=== PATIENT | female | born 1980 | race Caucasian/White ===

== ENCOUNTER 2019-09-13 01:01 | Inpatient (IN) | payer MEDICAID ==
[2019-09-13] VITALS (9 sets, daily range): BP systolic 90–122; BP diastolic 58–72; Ht 157.5 cm; Wt 47.6 kg
[~2019-09-13] VITALS: Ht 157.5 cm; Wt 47.6 kg
[~2019-09-13 01:01] MED LIST: DESERYL100 MG PO; FERREX 150 PLUS1 CAP PO; HUMALOG 30100 UNITS/ SC; HUMALOG MIX 50/53 ML SQ; HYDROCODONE-APA1 TAB PO; INHALER; INVOKANA300 MG PO; LANTUS SOL100 UNIT/1; LANTUS SOL100 UNIT/1 SC; LEVAQUIN750 MG PO; NAPROSYN500 MG PO; NEURONTIN 300300 MG PO; PAMELOR10 MG PO; PCN IV; SYMBICORT 80-10.2 GM INH; SYNTHROID150 MCG PO; TYLENOL W/CODEI1 TAB PO; VENTOLIN HFA18 GM; VENTOLIN HFA18 GM INH
[2019-09-13] MEDS ORDERED: NOVOLOG100 UNIT/1 SC (01:07)
[2019-09-13] MEDS ORDERED: LANTUS INSULIN SQ (01:07)
[2019-09-13 01:41] LABS: BILIRUBIN NEGATIVE (NEGATIVE); GLUCOSE 1000 mg/dL (NEGATIVE); KETONE NEGATIVE (NEGATIVE); NITRITE NEGATIVE (NEGATIVE); UROBILINOGEN NORMAL (NORMAL)
[2019-09-13 01:42] LABS: HCG URINE NEGATIVE (NEGATIVE)
[2019-09-13 01:48] LABS: UDS - AMPHET NEGATIVE QUAL (NEGATIVE); UDS - BARB NEGATIVE QUAL (NEGATIVE); UDS - BENZO NEGATIVE QUAL (NEGATIVE); UDS - COCAINE NEGATIVE QUAL (NEGATIVE); UDS - OPIATE NEGATIVE QUAL (NEGATIVE); UDS - PCP NEGATIVE QUAL (NEGATIVE); UDS - THC NEGATIVE QUAL (NEGATIVE)
[2019-09-13 01:57] LABS: HEMATOCRIT 39.4 % (36.0-48.0); HEMOGLOBIN 13.8 g/dL (12-16); LYMPHOCYTES 24.5 % (15-50); MCH 30.3 pg (26.0-34.0); MCV 86.6 fL (80.0-100.0); MEAN PLATELET VOLUME 9.4 fL (7.4-10.4); NEUTROPHILS 68.8 % (40-80); RBC 4.55 10x6/uL (4.00-5.40); WBC 7.7 10x3/uL (4.8-10.8)
[2019-09-13 02:02] LABS: PLATELET COUNT 396 10x3/uL (130-400)
[2019-09-13 02:18] LABS: ALBUMIN 3.4 g/dL (3.4-5.0); ANION GAP 13.9 mmol/L (8-16); BILIRUBIN - TOTAL 0.5 mg/dL (0.2-1.3); CALCIUM 9.4 mg/dL (8.5-10.1); CARBON DIOXIDE 25.6 mmol/L (21.0-32.0); MAGNESIUM - SERUM 1.9 mg/dL (1.8-2.4); PHOSPHOROUS 3.6 mg/dL (2.5-4.9); POTASSIUM - SERUM 4.5 mmol/L (3.5-5.1); PROTEIN - SERUM 7.3 g/dL (6.4-8.2); THYROID STIMULATING HORMONE 11.93 uIU/mL (0.36-3.74)
--- NOTE | 2019-09-13 07:28 | NUR ---
AWAKE AND ALERT. ORIENTED X3. NO C/O AT THIS TIME. LUNGS ARE CLEAR BILATERALLY, ENCOURAGED TO USE IS INSTRUCTED. SKIN IS INTACT WITHOUT REDNESS. IV TO RIGHT FOREARM IS PATENT WITHOUT REDNESS AT INSERTION SITE. PUREWICK IN PLACE. NO URINE OUT AT THIS TIME. DENIES NEEDS.
--- NOTE | 2019-09-13 09:29 | NUR ---
RESTING QUIETLY IN BED. CONSENTS COMPLETED. ALL QUESTIONS ANSWERED.
--- NOTE | 2019-09-13 10:53 | MORECARE ---
CASE MANAGEMENT DISCHARGE SUMMARY PATIENT: JESSICA RUIZ UNIT: [id number] ADM DATE: 09/13/19 AGE: 39 : 82 SEX: F ROOM/BED: D.1209 AUTHOR: MABLE ANTOINE PHYSICIAN: REFERRING PHYSICIAN: SHARMIN WINSTON MD DATE OF SERVICE: 09/13/19 Discharge Plan Patient Name: JESSICA RUIZ [facility] [facility] 1980 Planned Disposition: Outpatient PT\OT Anticipated Discharge Date: Discharge Date: Expected LOS: Initial Reviewer: [id number] Initial Review Date: 09/13/2019 Generated: 09/13/19 11:53 am Patient Name: JESSICA RUIZ Page 40700 at 1053 All edits/amendments must be made on the electronic document DICTATION DATE: 09/13/19 1053 SUPERVISOR ELECTRONICS PROCESSING: SAMIR 09/13/19 1053 RPT#: [id number] DC DATE: STATUS: ADM IN [facility] [address] [place] [address] END OF REPORT
--- NOTE | 2019-09-13 11:00 | MORECARE ---
CASE MANAGEMENT DISCHARGE SUMMARY PATIENT: JESSICA RUIZ UNIT: [id number] ADM DATE: 09/13/19 AGE: 39 : 82 SEX: F ROOM/BED: D.1209 AUTHOR: MABLE ANTOINE PHYSICIAN: REFERRING PHYSICIAN: SHARMIN WINSTON MD DATE OF SERVICE: 09/13/19 Discharge Plan Patient Name: JESSICA RUIZ [facility] [facility] 1980 Planned Disposition: Outpatient PT\OT Anticipated Discharge Date: Discharge Date: Expected LOS: Initial Reviewer: [email or web address] Initial Review Date: 09/13/2019 Generated: 09/13/19 12:00 pm DCPIA - Discharge Planning Initial Assessment Updated by [email or web address]: Edel Rosas on 09/13/19 10:53 am * Is the patient Alert and Oriented? Yes * How many steps to enter\exit or inside your home? * PCP None. * Pharmacy [facility] [place] * Preadmission Environment Home with Family * ADLs Independent * Equipment Glucometer * List name and contact numbers for known caregivers / representatives who currently or will assist patient after discharge: Jeanette Montanez (friend) [phone] * Verbal permission to speak to the caregivers and representatives has been obtained from the patient. Yes * Please name any agencies selected above. [facility] [place] * Additional services required to return to the preadmission environment? Yes * Can the patient safely return to the preadmission environment? Yes * Has this patient been hospitalized within the prior 30 days at any hospital? No Last DP export: 09/13/19 9:53 a Patient Name: JESSICA RUIZ Page 02718 at 1100 All edits/amendments must be made on the electronic document DICTATION DATE: 09/13/19 1100 REIMBURSEMENT REPRESENTATIVE: SAMIR 09/13/19 1100 RPT#: [id number] DC DATE: STATUS: ADM IN [facility] [address] [place] [address] END OF REPORT
--- NOTE | 2019-09-13 11:07 | MORECARE ---
CASE MANAGEMENT DISCHARGE SUMMARY PATIENT: VIOLA LYLES UNIT: [id number] ADM DATE: 09/13/19 AGE: 39 : 82 SEX: F ROOM/BED: D.1209 AUTHOR: ARASH,DOC PHYSICIAN: REFERRING PHYSICIAN: SHARMIN WINSTON MD DATE OF SERVICE: 09/13/19 Discharge Plan Patient Name: VIOLA LYLES Facility: [facility]:[place] : 1980 Planned Disposition: Outpatient PT\\OT Anticipated Discharge Date: Discharge Date: Expected LOS: Initial Reviewer: [email or web address] Initial Review Date: 09/13/2019 Generated: 09/13/19 12:07 pm Comments DCP- Discharge Planning Updated by [email or web address]: Edel Rosas on 09/13/19 10:[address] DC Needs: [facility] OutPatient Therapy, BSC. CM met with patient regarding DC needs/plans. Patient is A/O X3. Lives independently with 2 friends and her 13 yr/old son.PCP: "in the works". [facility]. 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 DME: Glucometer, walker. Emergency contact: Jeanette Montanez (friend) [phone]. Patient gives permission to speak with friend. Community resources: [facility] [place]. Patient states she feels that her home is a safe environment. Denies being hospitalized within past 30 days. Transportation at [place]: [place] or [employer]. Patient Choice for MANNEQUIN MAKER OP Theray signed. DCPIA - Discharge Planning Initial Assessment Updated by [email or web address]: Edel Rosas on 09/13/19 10:53 am * Is the patient Alert and Oriented? Yes * How many steps to enter\\exit or inside your home? * PCP None. * [email or web address] * Preadmission Environment Home with Family * ADLs Independent * Equipment Glucometer * List name and contact numbers for known caregivers / representatives who currently or will assist patient after discharge: Jeanette Montanez (friend) [phone] * Verbal permission to speak to the caregivers and representatives has been obtained from the patient. Yes * Please name any agencies selected above. [facility] [place] * Additional services required to return to the preadmission environment? Yes * Can the patient safely return to the preadmission environment? Yes * Has this patient been hospitalized within the prior 30 days at any hospital? No Coverage Notice Reviewer: [id number] Mirella Rosas Notice Issued Date-Time: 09/13/2019 11:03 Notice Type: Patient Choice Letter Notice Delivered To: Patient Relationship to Patient: Self Supervisor Fertilizer Name: Viola Lyles Delivery Method: HAND - Hand Delivered Krystyna Days: Prior Verbal Notification: Recipient Understood Notice: Yes Recipient Signature: Yes Med Rec Note Co-signed by Attending: Coverage Notice Comment: Patient Choice [facility] OP Therapy. Last DP export: 09/13/19 10:00 a Patient Name: VIOLA LYLES Page 16230 at 1107 All edits/amendments must be made on the electronic document DICTATION DATE: 09/13/191106 UPHOLSTERER LIMOUSINE AND HEARSE: SAMIR 09/13/191106 RPT#: [id number] DC DATE: STATUS: ADM IN [facility] [address] [place] [address] END OF REPORT
--- NOTE | 2019-09-13 11:38 | MORECARE ---
CASE MANAGEMENT DISCHARGE SUMMARY PATIENT: VIOLA LYLES UNIT: [id number] ADM DATE: 09/13/19 AGE: 39 : 82 SEX: F ROOM/BED: D.1209 AUTHOR: ARASH,DOC PHYSICIAN: REFERRING PHYSICIAN: SHARMIN WINSTON MD DATE OF SERVICE: 09/13/19 Discharge Plan Patient Name: VIOLA LYLES Facility: [facility]:[place] : 1980 Planned Disposition: Outpatient PT\\OT Anticipated Discharge Date: Discharge Date: Expected LOS: Initial Reviewer: [id number] Initial Review Date: 09/13/2019 Generated: 09/13/19 12:37 pm DCP- Discharge Planning Updated by [email or web address]: Edel Rosas on 09/13/19 10:[address] DC Needs: [facility] OutPatient Therapy, BSC. CM met with patient regarding DC needs/plans. Patient is A/O X3. Lives independently with 2 friends and her 13 yr/old son.PCP: "in the works". Pharmacy: [facility]. 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 DME: Glucometer, walker. Emergency contact: Jeanette Montanez (friend) [phone]. Patient gives permission to speak with friend. Community resources: [facility] [place]. Patient states she feels that her home is a safe environment. Denies being hospitalized within past 30 days. Transportation at [place]: [employer] or [employer]. Patient Choice for CANE LOADER OP Theray signed. DCPIA - Discharge Planning Initial Assessment Updated by [email or web address]: Edel Rosas on 09/13/19 10:53 am * Is the patient Alert and Oriented? Yes * How many steps to enter\\exit or inside your home? * PCP None. * [facility]acy [email or web address] * Preadmission Environment Home with Family * ADLs Independent * Equipment Glucometer * List name and contact numbers for known caregivers / representatives who currently or will assist patient after discharge: Jeanette Montanez (friend) [phone] * Verbal permission to speak to the caregivers and representatives has been obtained from the patient. Yes * Please name any agencies selected above. [facility] [place] * Additional services required to return to the preadmission environment? Yes * Can the patient safely return to the preadmission environment? Yes * Has this patient been hospitalized within the prior 30 days at any hospital? No Coverage Notice Reviewer: [id number] Mirella Rosas Notice Issued Date-Time: 09/13/2019 11:03 Notice Type: Patient Choice Letter Notice Delivered To: Patient Relationship to Patient: Self Impregnating Helper Name: Viola Lyles Delivery Method: HAND - Hand Delivered Krystyna Days: Prior Verbal Notification: Recipient Understood Notice: Yes Recipient Signature: Yes Med Rec Note Co-signed by Attending: Coverage Notice Comment: Patient Choice [facility] OP Therapy. Last DP export: 09/13/19 10:07 a Patient Name: VIOLA LYLES Page 81164 at 1138 All edits/amendments must be made on the electronic document DICTATION DATE: 09/13/191136 SPLITTER MACHINE: SAMIR 09/13/191136 RPT#: [id number] DC DATE: STATUS: ADM IN [facility] [address] [place] [address] END OF REPORT
--- NOTE | 2019-09-13 12:16 | MORECARE ---
CASE MANAGEMENT DISCHARGE SUMMARY PATIENT: VIOLA LYLES UNIT: [id number] ADM DATE: 09/13/19 AGE: 39 : 84 SEX: F ROOM/BED: D.1209 AUTHOR: ARASH,DOC PHYSICIAN: REFERRING PHYSICIAN: SHARMIN WINSTON MD DATE OF SERVICE: 09/13/19 Discharge Plan Patient Name: VIOLA LYLES Facility: [facility]:[place] : 1980 Planned Disposition: Outpatient PT\\OT Anticipated Discharge Date: Discharge Date: Expected LOS: Initial Reviewer: [email or web address] Initial Review Date: 09/13/2019 Generated: 09/13/19 1:16 pm DCP- Discharge Planning Updated by [email or web address]: Edel Rosas on 09/13/19 10:[address] DC Needs: [facility] OutPatient Therapy, BSC. CM met with patient regarding DC needs/plans. Patient is A/O X3. Lives independently with 2 friends and her 13 yr/old son.PCP: "in the works". Pharmacy: [facility]. 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 DME: Glucometer, walker. Emergency contact: Jeanette Montanez (friend) [phone]. Patient gives permission to speak with friend. Community resources: [facility] [place]. Patient states she feels that her home is a safe environment. Denies being hospitalized within past 30 days. Transportation at [place]: [employer] or [employer]. Patient Choice for INSTRUCTOR WATCH ASSEMBLY OP Theray signed. DCPIA - Discharge Planning Initial Assessment Updated by [email or web address]: Edel Rosas on 09/13/19 10:53 am * Is the patient Alert and Oriented? Yes * How many steps to enter\\exit or inside your home? * PCP None. * Pharmacy [facility] * Preadmission Environment Home with Family * ADLs Independent * Equipment Glucometer * List name and contact numbers for known caregivers / representatives who currently or will assist patient after discharge: Jeanette Montanez (friend) [phone] * Verbal permission to speak to the caregivers and representatives has been obtained from the patient. Yes * Please name any agencies selected above. [facility] [place] * Additional services required to return to the preadmission environment? Yes * Can the patient safely return to the preadmission environment? Yes * Has this patient been hospitalized within the prior 30 days at any hospital? No Coverage Notice Reviewer: [id number] Mirella Rosas Notice Issued Date-Time: 09/13/2019 11:03 Notice Type: Patient Choice Letter Notice Delivered To: Patient Relationship to Patient: Self Home Day Care Provider Name: Viola Lyles Delivery Method: HAND - Hand Delivered Krystyna Days: Prior Verbal Notification: Recipient Understood Notice: Yes Recipient Signature: Yes Med Rec Note Co-signed by Attending: Coverage Notice Comment: Patient Choice [facility] OP Therapy. Last DP export: 09/13/19 10:37 a Patient Name: VIOLA LYLES Page 88949 at 1216 All edits/amendments must be made on the electronic document DICTATION DATE: 09/13/191215 LABOR REPRESENTATIVE: SAMIR 09/13/19 1216 RPT#: [id number] DC DATE: STATUS: ADM IN [facility] [address] [place] [address] END OF REPORT
--- NOTE | 2019-09-13 12:30 | NUR ---
OFF UNIT VIA BED TO SURGERY.
--- NOTE | 2019-09-13 15:21 | NUR ---
RETURNED FROM SURGERY. A/O X3. NO C/O AT THIS TIME. DRESSING TO RIGHT HIP DRY AND INTACT. DENIES NEEDS.
--- NOTE | 2019-09-13 17:10 | NUR ---
REQUESTED AND GIVNE ONE MG DILAUDID SLOW IVP FOR C/O RIGHT HIP PAIN LEVEL 7. WILL MONITOR.
[2019-09-13 17:52] LABS: LYMPHOCYTES 17.6 % (15-50); MCH 30.4 pg (26.0-34.0); MCHC 34.3 g/dL (31.0-37.0); MEAN PLATELET VOLUME 9.2 fL (7.4-10.4); NEUTROPHILS 74.3 % (40-80); RBC 3.95 10x6/uL (4.00-5.40); RDW 14.2 % (11.5-14.5); WBC 7.7 10x3/uL (4.8-10.8)
[2019-09-13 17:54] LABS: MCV 88.6 fL (80.0-100.0); PLATELET COUNT 286 10x3/uL (130-400)
--- NOTE | 2019-09-13 18:05 | MORECARE ---
CASE MANAGEMENT DISCHARGE SUMMARY PATIENT: VIOLA LYLES UNIT: [id number] ADM DATE: 09/13/19 AGE: 39 : 84 SEX: F ROOM/BED: D.1209 AUTHOR: ARASH,DOC PHYSICIAN: REFERRING PHYSICIAN: SHARMIN WINSTON MD DATE OF SERVICE: 09/13/19 Discharge Plan Patient Name: VIOLA LYLES Facility: [facility]:[place] : 1980 Planned Disposition: Outpatient PT\\OT Anticipated Discharge Date: Discharge Date: Expected LOS: Initial Reviewer: [email or web address] Initial Review Date: 09/13/2019 Generated: 09/13/19 7:04 pm Comments DCP- Discharge Planning Updated by [email or web address]: Edel Rosas on 09/13/19 5:[address] DC Needs: [facility] OutPatient Therapy, BSC (ordered [facility] d/t Medicaid pending). CM met with patient regarding DC needs/plans. Patient is A/O X3. Lives independently with 2 friends and her 13 yr/old son.PCP: "in the works". Pharmacy: [facility]. 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 DME: Glucometer, walker. Emergency contact: Jeanette Montanez (friend) [phone]. Patient gives permission to speak with friend. Community resources: [employer] [place]. Patient states she feels that her home is a safe environment. Denies being hospitalized within past 30 days. Transportation at [place]: [employer] or [employer]. Patient Choice for POUCH MAKER OP Theray signed. DCPIA - Discharge Planning Initial Assessment Updated by [email or web address]: Edel Rosas on 09/13/19 10:53 am * Is the patient Alert and Oriented? Yes * How many steps to enter\\exit or inside your home? * PCP None. * [facility] * Preadmission Environment Home with Family * ADLs Independent * Equipment Glucometer * List name and contact numbers for known caregivers / representatives who currently or will assist patient after discharge: Jeanette Montanez (friend) [phone] * Verbal permission to speak to the caregivers and representatives has been obtained from the patient. Yes * Please name any agencies selected above. [employer] [place] * Additional services required to return to the preadmission environment? Yes * Can the patient safely return to the preadmission environment? Yes * Has this patient been hospitalized within the prior 30 days at any hospital? No External Providers External Provider: Jose Estrada Contact Date: Service Request Date: Service Type: Resolution: Reviewer: Comments: Coverage Notice Reviewer: [id number] Mirella Edel Alison Notice Issued Date-Time: 09/13/2019 11:03 Notice Type: Patient Choice Letter Notice Delivered To: Patient Relationship to Patient: Self Back Tender Fourdrinier Name: Viola Lyles Delivery Method: HAND - Hand Delivered Krystyna Days: Prior Verbal Notification: Recipient Understood Notice: Yes Recipient Signature: Yes Med Rec Note Co-signed by Attending: Coverage Notice Comment: Patient Choice [facility] OP Therapy. Last DP export: 09/13/19 11:16 a Patient Name: VIOLA LYLES Page 83985 at 1805 All edits/amendments must be made on the electronic document DICTATION DATE: 09/13/191803 GRINDER HARDBOARD: SAMIR 09/13/191803 RPT#: [id number] DC DATE: STATUS: ADM IN [facility] [address] [place] [address] END OF REPORT
[2019-09-13 18:21] LABS: CARBON DIOXIDE 24.2 mmol/L (21.0-32.0); CHLORIDE - SERUM 100 mmol/L (98-107); SODIUM 133 mmol/L (136-145)
[2019-09-13 18:29] LABS: CALC OSMOLALITY 275 mosm/kg (275-300); CREATININE - SERUM 0.5 mg/dL (0.6-1.3); GLUCOSE 296 mg/dL (74-106); POTASSIUM - SERUM 3.8 mmol/L (3.5-5.1); UREA NITROGEN 10 mg/dL (7-18); eGFR NON AFRICAN AMERICAN > 90 mL/min (90-120)
--- NOTE | 2019-09-13 19:10 | NUR ---
ATE ALL OF SUPPER. DENIES NEEDS. NO CHANGES NOTED. FSBS 279 AFTER MEAL. GIVEN 6 UNITS HUMALOG SUBQ PER SS.
--- NOTE | 2019-09-13 19:17 | NUR ---
PATIENT RESTING IN BED WITH EYES CLOSED AND NO S/S OF DISTRESS. BED IN LOWEST POSITION AND CALL LIGHT WITHIN REACH. WILL CONTINUE TO MONITOR.
[2019-09-14 05:17] VITALS: BP 113/77
[2019-09-14 06:51] LABS: HEMATOCRIT 35.1 % (36.0-48.0); LYMPHOCYTES 19.4 % (15-50); MCH 30.2 pg (26.0-34.0); MCHC 34.2 g/dL (31.0-37.0); MCV 88.4 fL (80.0-100.0); MEAN PLATELET VOLUME 9.7 fL (7.4-10.4); NEUTROPHILS 75.1 % (40-80); PLATELET COUNT 264 10x3/uL (130-400); RBC 3.97 10x6/uL (4.00-5.40); RDW 14.3 % (11.5-14.5); WBC 5.9 10x3/uL (4.8-10.8)
[2019-09-14 07:00] LABS: ALBUMIN 2.6 g/dL (3.4-5.0); ALKALINE PHOSPHATASE 139 U/L (30-120); ALT (SGPT) 31 U/L (10-68); BILIRUBIN - TOTAL 0.54 mg/dL (0.2-1.3); CALC OSMOLALITY 273 mosm/kg (275-300); CALCIUM 8.1 mg/dL (8.5-10.1); CARBON DIOXIDE 28.5 mmol/L (21.0-32.0); CHLORIDE - SERUM 101 mmol/L (98-107); CREATININE - SERUM 0.4 mg/dL (0.6-1.3); GLUCOSE 193 mg/dL (74-106); POTASSIUM - SERUM 3.6 mmol/L (3.5-5.1); PROTEIN - SERUM 5.9 g/dL (6.4-8.2); SODIUM 136 mmol/L (136-145); UREA NITROGEN 5 mg/dL (7-18); eGFR NON AFRICAN AMERICAN > 90 mL/min (90-120)
--- NOTE | 2019-09-14 07:00 | NUR ---
RECEIVED BEDSIDE REOPRT ON PATIENT AND ASSUMED CARE. PATIENT IN BED, ALERT AND ORIENTED X 4, DENIES ANY PAIN OR DISCOMFORT. VSS. IV 20 GA TO RIGHT FA INFUSING NS AT 125 ML/HR W/0 S/S OF INFILTRATION. 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 BBS - CLEAR AND EQUAL, RR - 18, NON LABORED, SO2 - 92% ON RA. IS - 2,000 ML WITH PRODUCTIVE COUGH, MORALES/BAUTISTA IN COLOR. HR - 104, RRR. HEAD TO TOE ASSESSMENT COMPLETED.
[2019-09-14 07:30] VITALS: BP 122/67
--- NOTE | 2019-09-14 07:40 | NUR ---
PATIENT GIVEN BREAKFAST TRAY.
--- NOTE | 2019-09-14 07:49 | NUR ---
PATIENT ATE 100% OF BREAKFAST. NO NEEDS AT THIS TIME.
--- NOTE | 2019-09-14 08:11 | NUR ---
KACIE FIGUEROA AT ROOM UPDATED AND EXAMINES PATIENT. IV NSL.
--- NOTE | 2019-09-14 08:32 | NUR ---
MORNING MEDS GIVEN PER JUL. PATIENT C/O RIGHT HIP PAIN RATES 10/12.
--- NOTE | 2019-09-14 08:45 | NUR ---
SPOKE TO KACIE FIGUEROA, ORDERS NORCO 10/325 X 1 TAB Q4H PRN FOR PAIN.
--- NOTE | 2019-09-14 08:52 | NUR ---
PATIENT VOIDS 450 ML OF CLEAR YELLOW UOP. GIVEN NORCO 10/325 PER ORDER FOR PAIN 10/12.
--- NOTE | 2019-09-14 10:13 | NUR ---
PATIENT SAT ON SIDE OF BED WITH PT BUT REFUSED TO GET UP TO CHAIR OR STAND WITH WALKER, STATES SHE CANT.
--- NOTE | 2019-09-14 10:38 | MORECARE ---
CASE MANAGEMENT DISCHARGE SUMMARY PATIENT: VIOLA LYLES UNIT: [id number] ADM DATE: 09/13/19 AGE: 39 : 84 SEX: F ROOM/BED: D.1209 AUTHOR: ARASH,DOC PHYSICIAN: REFERRING PHYSICIAN: SHARMIN WINSTON MD DATE OF SERVICE: 09/14/19 Discharge Plan Patient Name: VIOLA LYLES Facility: [facility]:[place] : 1980 Planned Disposition: Outpatient PT\\OT Anticipated Discharge Date: Discharge Date: Expected LOS: Initial Reviewer: [id number] Initial Review Date: 09/13/2019 Generated: 09/14/19 11:37 am Comments DCP- Discharge Planning Updated by [email or web address]: Edel Rosas on 09/14/19 9:[address] CM contacted Zora, with [facility] to verify fax receipt. [facility] will be able to provide the BSC upon DC. CM discussed HHS, Skilled, but the patient declined both. She lives with 3 friends and her 13 year old son. She admitted to PT that she has not been out of bed in the last month and when she got up to go into the bathroom, she fell. Patient has refused to participate with PT this morning. Encouraged her to participate, for a better outcome and voices understanding. DCP- Discharge Planning Updated by [email or web address]: Edel Rosas on 09/13/19 5:[address] DC Needs: [facility] OutPatient Therapy, BSC (ordered [facility] d/t Medicaid pending). CM met with patient regarding DC needs/plans. Patient is A/O X3. Lives independently with 2 friends and her 13 yr/old son.PCP: "in the works". [facility]acy[facility]. 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 DME: Glucometer, walker. Emergency contact: Jeanette Montanez (friend) [phone]. Patient gives permission to speak with friend. Community resources: [employer]. Patient states she feels that her home is a safe environment. Denies being hospitalized within past 30 days. Transportation at [place]: [employer] or [place]. Patient Choice for COLLEGE ADVISOR OP Theray signed. DCPIA - Discharge Planning Initial Assessment Updated by [email or web address]: Edel Rosas on 09/13/19 10:53 am * Is the patient Alert and Oriented? Yes * How many steps to enter\\exit or inside your home? * PCP None. * Pharmacy [facility] * Preadmission Environment Home with Family * ADLs Independent * Equipment Glucometer * List name and contact numbers for known caregivers / representatives who currently or will assist patient after discharge: Jeanette Montanez (friend) [phone] * Verbal permission to speak to the caregivers and representatives has been obtained from the patient. Yes * Please name any agencies selected above. [employer] * Additional services required to return to the preadmission environment? Yes * Can the patient safely return to the preadmission environment? Yes * Has this patient been hospitalized within the prior 30 days at any hospital? No Coverage Notice Reviewer: [id number] Mirella Rosas Notice Issued Date-Time: 09/13/2019 11:03 Notice Type: Patient Choice Letter Notice Delivered To: Patient Relationship to Patient: Self Farrowing Worker Name: Viola Lyles Delivery Method: HAND - Hand Delivered Krystyna Days: Prior Verbal Notification: Recipient Understood Notice: Yes Recipient Signature: Yes Med Rec Note Co-signed by Attending: Coverage Notice Comment: Patient Choice [facility] OP Therapy. Reviewer: [id number] Mirella Rosas Notice Issued Date-Time: 09/13/2019 18:07 Notice Type: Patient Choice Letter Notice Delivered To: Patient Relationship to Patient: Self Farrowing Worker Name: Viola Lyles Delivery Method: HAND - Hand Delivered Krystyna Days: Prior Verbal Notification: Recipient Understood Notice: Recipient Signature: Yes Med Rec Note Co-signed by Attending: Coverage Notice Comment: Patient choice for [facility] Reviewer: [email or web address] Mirella Rosas Notice Issued Date-Time: 09/13/2019 18:07 Notice Type: Patient Choice Letter Notice Delivered To: Patient Relationship to Patient: Self Farrowing Worker Name: Viola Lyles Delivery Method: HAND - Hand Delivered Krystyna Days: Prior Verbal Notification: Recipient Understood Notice: Yes Recipient Signature: Yes Med Rec Note Co-signed by Attending: Coverage Notice Comment: Patient choice for [facility] OP Therapy Last DP export: 09/13/19 5:05 p Patient Name: VIOLA LYLES Page 92188 at 1038 All edits/amendments must be made on the electronic document DICTATION DATE: 09/14/19 1037 FIELD MECHANIC/SITE LEAD: DM 09/14/19 1037 RPT#: [id number] DC DATE: STATUS: ADM IN [facility] [address] [place] [address] END OF REPORT
--- NOTE | 2019-09-14 12:00 | NUR ---
PATIENT GIVEN LUNCH TRAY, NO NEEDS AT THIS TIME.
[2019-09-14 12:07] VITALS: BP 98/60
--- NOTE | 2019-09-14 12:43 | MORECARE ---
CASE MANAGEMENT DISCHARGE SUMMARY PATIENT: VIOLA LYLES UNIT: [id number] ADM DATE: 09/13/19 AGE: 39 : 82 SEX: F ROOM/BED: D.1209 AUTHOR: ARASH,DOC PHYSICIAN: REFERRING PHYSICIAN: SHARMIN WINSTON MD DATE OF SERVICE: 09/14/19 Discharge Plan Patient Name: VIOLA LYLES Facility: [facility]:[place] : 1980 Planned Disposition: Outpatient PT\\OT Anticipated Discharge Date: Discharge Date: Expected LOS: Initial Reviewer: [email or web address] Initial Review Date: 09/13/2019 Generated: 09/14/19 1:42 pm Comments DCP- Discharge Planning Updated by [email or web address]: Edel Rosas on 09/14/19 11:[address] CM contacted Zora, with [facility] to verify fax receipt. [facility] will be able to provide the BSC upon DC. CM discussed HHS, Skilled, but the patient declined both. She lives with 3 friends and her 13 year old son. She admitted to PT that she has not been out of bed in the last month and when she got up to go into the bathroom, she fell. Patient has refused to participate with PT this morning. Encouraged her to participate, for a better outcome and voices understanding. Patient is Medicaid Pending. DC plans discussed with patient and she request OP therapy at [facility]. Patient lives with 3 friends and her 13 year old son. DCP- Discharge Planning Updated by [email or web address]: Edel Rosas on 09/13/19 5:[address] DC Needs: [facility] OutPatient Therapy, BSC (ordered [facility] d/t Medicaid pending). CM met with patient regarding DC needs/plans. Patient is A/O X3. Lives independently with 2 friends and her 13 yr/old son.PCP: "in the works". Pharmacy: [facility]. 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 DME: Glucometer, walker. Emergency contact: Jeanette Montanez (friend) [phone]. Patient gives permission to speak with friend. Community resources: [employer] [place]. Patient states she feels that her home is a safe environment. Denies being hospitalized within past 30 days. Transportation at DC: Jeanette [facility]. Patient Choice for ROLL SHOP SUPERVISOR OP Theray signed. DCPIA - Discharge Planning Initial Assessment Updated by [email or web address]: Edel Rosas on 09/13/19 10:53 am * Is the patient Alert and Oriented? Yes * How many steps to enter\\exit or inside your home? * PCP None. * Pharmacy [facility], [place] * Preadmission Environment Home with Family * ADLs Independent * Equipment Glucometer * List name and contact numbers for known caregivers / representatives who currently or will assist patient after discharge: Jeanette Montanez (friend) [phone] * Verbal permission to speak to the caregivers and representatives has been obtained from the patient. Yes * Please name any agencies selected above. [employer] [place] * Additional services required to return to the preadmission environment? Yes * Can the patient safely return to the preadmission environment? Yes * Has this patient been hospitalized within the prior 30 days at any hospital? No Coverage Notice Reviewer: [id number] Mirella Rosas Notice Issued Date-Time: 09/13/2019 11:03 Notice Type: Patient Choice Letter Notice Delivered To: Patient Relationship to Patient: Self Pole Incisor Operator Name: Viola Lyles Delivery Method: HAND - Hand Delivered Krystyna Days: Prior Verbal Notification: Recipient Understood Notice: Yes Recipient Signature: Yes Med Rec Note Co-signed by Attending: Coverage Notice Comment: Patient Choice [facility] OP Therapy. Reviewer: [id number] Mirella Rosas Notice Issued Date-Time: 09/13/2019 18:07 Notice Type: Patient Choice Letter Notice Delivered To: Patient Relationship to Patient: Self Pole Incisor Operator Name: Viola Lyles Delivery Method: HAND - Hand Delivered Krystyna Days: Prior Verbal Notification: Recipient Understood Notice: Recipient Signature: Yes Med Rec Note Co-signed by Attending: Coverage Notice Comment: Patient choice for [employer] Reviewer: [id number] Mirella Rosas Notice Issued Date-Time: 09/13/2019 18:07 Notice Type: Patient Choice Letter Notice Delivered To: Patient Relationship to Patient: Self Pole Incisor Operator Name: Viola Lyles Delivery Method: HAND - Hand Delivered Krystyna Days: Prior Verbal Notification: Recipient Understood Notice: Yes Recipient Signature: Yes Med Rec Note Co-signed by Attending: Coverage Notice Comment: Patient choice for [facility] OP Therapy Last DP export: 09/14/19 9:38 a Patient Name: VIOLA LYLES Page [id number] at 1243 All edits/amendments must be made on the electronic document DICTATION DATE: 09/14/191241 PRECISION LENS TECHNICIAN: SAMIR 09/14/191241 RPT#: [id number] DC DATE: STATUS: ADM IN [facility] [address] [place] [address] END OF REPORT
--- NOTE | 2019-09-14 12:59 | NUR ---
PATIENT ATE 100% OF LUNCH, C/O PAIN TO RIGHT HIP AND LOWER BACK RATES 5/10, PRN NORCO 10/ GIVEN PER JUL.
--- NOTE | 2019-09-14 13:52 | MORECARE ---
CASE MANAGEMENT DISCHARGE SUMMARY PATIENT: JESSICA RUIZ UNIT: [id number] ADM DATE: 09/13/19 AGE: 39 : 82 SEX: F ROOM/BED: D.1209 AUTHOR: ARASH,DOC PHYSICIAN: REFERRING PHYSICIAN: SHARMIN WINSTON MD DATE OF SERVICE: 09/14/19 Discharge Plan Patient Name: JESSICA RUIZ Facility: [facility]:[place] : 1980 Planned Disposition: Outpatient PT\\OT Anticipated Discharge Date: Discharge Date: Expected LOS: Initial Reviewer: [email or web address] Initial Review Date: 09/13/2019 Generated: 09/14/19 2:52 pm Comments DCP- Discharge Planning Updated by [email or web address]: Edel Rosas on 09/14/19 12:[address] DC Plan: CM faxed OP Therapy orders to [facility], Attn: Ling. CM contacted Zora, with [facility] to verify fax receipt. [facility]. CM discussed HHS, Skilled, but the patient declined both. She lives with 3 friends and her 13 year old son. She admitted to PT that she has not been out of bed in the last month and when she got up to go into the bathroom, she fell. Patient has refused to participate with PT this morning. Encouraged her to participate, for a better outcome and voices understanding. Patient is Medicaid Pending. DC plans discussed with patient and she request OP therapy at [facility]. Patient lives with 3 friends and her 13 year old son. DCP- Discharge Planning Updated by [id number]: Edel Rosas on 09/13/19 5:[address] DC Needs: [facility] OutPatient Therapy, BSC ([facility] CM met with patient regarding DC needs/plans. Patient is A/O X3. Lives independently with 2 friends and her 13 yr/old son.PCP: "in the works". Pharmacy: [facility]. 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 DME: Glucometer, walker. Emergency contact: Jeanette Tarik (friend) [phone]. Patient gives permission to speak with friend. Community resources: [employer] [place]. Patient states she feels that her home is a safe environment. Denies being hospitalized within past 30 days. Transportation at [place]: [employer] or [place]. Patient Choice for OUTSOLE LEVELER OP Theray signed. IDPIA - Discharge Planning Initial Assessment Updated by [email or web address]: Edel Rosas on 09/13/19 10:53 am * Is the patient Alert and Oriented? Yes * How many steps to enter\\exit or inside your home? * PCP None. * Pharmacy [facility], [place] * Preadmission Environment Home with Family * ADLs Independent * Equipment Glucometer * List name and contact numbers for known caregivers / representatives who currently or will assist patient after discharge: Jeanette Montanez (friend) [phone] * Verbal permission to speak to the caregivers and representatives has been obtained from the patient. Yes * Please name any agencies selected above. [employer] * Additional services required to return to the preadmission environment? Yes * Can the patient safely return to the preadmission environment? Yes * Has this patient been hospitalized within the prior 30 days at any hospital? No External Providers [facility] Next Contact Date: Service Request Date: Service Type: Resolution: Reviewer: Comments: Coverage Notice Reviewer: [id number] Mirella Rosas Notice Issued Date-Time: 09/13/2019 11:03 Notice Type: Patient Choice Letter Notice Delivered To: Patient Relationship to Patient: Self Grinder Setup Operator Name: Crystal Rafal Delivery Method: HAND - Hand Delivered Krystyna Days: Prior Verbal Notification: Recipient Understood Notice: Yes Recipient Signature: Yes Med Rec Note Co-signed by Attending: Coverage Notice Comment: Patient Choice [facility] OP Therapy. Reviewer: [id number] Mirella Rosas Notice Issued Date-Time: 09/13/2019 18:07 Notice Type: Patient Choice Letter Notice Delivered To: Patient Relationship to Patient: Self Grinder Setup Operator Name: Crystal Rafal Delivery Method: HAND - Hand Delivered Krystyna Days: Prior Verbal Notification: Recipient Understood Notice: Recipient Signature: Yes Med Rec Note Co-signed by Attending: Coverage Notice Comment: Patient choice for [employer] Reviewer: [id number] Mirella Rosas Notice Issued Date-Time: 09/13/2019 18:07 Notice Type: Patient Choice Letter Notice Delivered To: Patient Relationship to Patient: Self Grinder Setup Operator Name: Crystal Rafal Delivery Method: HAND - Hand Delivered Krystyna Days: Prior Verbal Notification: Recipient Understood Notice: Yes Recipient Signature: Yes Med Rec Note Co-signed by Attending: Coverage Notice Comment: Patient choice for [facility] OP Therapy Last DP export: 09/14/19 11:43 a Patient Name: JESSICA RUIZ Page [id number] at 1352 All edits/amendments must be made on the electronic document DICTATION DATE: 09/14/19 1352 TABLE MACHINE OPERATOR: SAMIR 09/14/19 1352 RPT#: [id number] DC DATE: STATUS: ADM IN [facility] [address] [place] [address] END OF REPORT
--- NOTE | 2019-09-14 14:15 | NUR ---
PATIENT WALKED 6 FT WITH PT. THEN BACK TO BED.
--- NOTE | 2019-09-14 15:20 | NUR ---
PATIENT SITTING UP IN BED, WATCHING TV, RATES PAIN 2/10, NO NEEDS AT THIS TIME.
[2019-09-14 15:45] VITALS: BP 102/62
--- NOTE | 2019-09-14 16:53 | NUR ---
PATIENT SITTING UP IN BED, C/O PAIN 10, GIVEN DINNER TRAY, NO NEEDS AT THIS TIME.
--- NOTE | 2019-09-14 16:55 | MORECARE ---
CASE MANAGEMENT DISCHARGE SUMMARY PATIENT: JESSICA RUIZ UNIT: [id number] ADM DATE: 09/13/19 AGE: 39 : 82 SEX: F ROOM/BED: D.1209 AUTHOR: ARASH,DOC PHYSICIAN: REFERRING PHYSICIAN: SHARMIN WINSTON MD DATE OF SERVICE: 09/14/19 Discharge Plan Patient Name: JESSICA RUIZ Facility: [facility]:[place] : 1980 Planned Disposition: Outpatient PT\\OT Anticipated Discharge Date: 09/16/19 Discharge Date: Expected LOS: 3 Initial Reviewer: [id number] Initial Review Date: 09/13/2019 Generated: 09/14/19 5:54 pm Comments DCP- Discharge Planning Updated by [email or web address]: Edel Rosas on 09/14/19 3:[address] DC Plan: CM faxed OP Therapy orders to [facility], Attn: Ling. Appointment: Saturday 09/16 @ 1200. CM contacted Zora, with [facility] to verify fax receipt. [facility] will be able to provide the BSC upon DC. CM discussed HHS, Skilled, but the patient declined both. She lives with 3 friends and her 13 year old son. She admitted to PT that she has not been out of bed in the last month and when she got up to go into the bathroom, she fell. Patient has refused to participate with PT this morning. Encouraged her to participate, for a better outcome and voices understanding. Patient is Medicaid Pending. DC plans discussed with patient and she request OP therapy at [facility]. Patient lives with 3 friends and her 13 year old son. DCP- Discharge Planning Updated by [id number]: Edel Rosas on 09/13/19 5:[address] DC Needs: [facility] OutPatient Therapy, BSC (ordered [facility] d/t Medicaid pending). CM met with patient regarding DC needs/plans. Patient is A/O X3. Lives independently with 2 friends and her 13 yr/old son.PCP: "in the works". Pharmacy: [facility], [facility]. 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 DME: Glucometer, walker. Emergency contact: Jeanette Montanez (friend) [phone]. Patient gives permission to speak with friend. Community resources: [employer] [place]. Patient states she feels that her home is a safe environment. Denies being hospitalized within past 30 days. Transportation at [place]: [facility] or [place]. Patient Choice for GEAR FINISHER OP Theray signed. NEPIA - Discharge Planning Initial Assessment Updated by [email or web address]: Edel Rosas on 09/13/19 10:53 am * Is the patient Alert and Oriented? Yes * How many steps to enter\\exit or inside your home? * PCP None. * Pharmacy [facility], [place] * Preadmission Environment Home with Family * ADLs Independent * Equipment Glucometer * List name and contact numbers for known caregivers / representatives who currently or will assist patient after discharge: Jeanette Tarik (friend) [phone] * Verbal permission to speak to the caregivers and representatives has been obtained from the patient. Yes * Please name any agencies selected above. [employer] [place] * Additional services required to return to the preadmission environment? Yes * Can the patient safely return to the preadmission environment? Yes * Has this patient been hospitalized within the prior 30 days at any hospital? No Coverage Notice Reviewer: [id number] Mirella Rosas Notice Issued Date-Time: 09/13/2019 11:03 Notice Type: Patient Choice Letter Notice Delivered To: Patient Relationship to Patient: Self Yard Truck Driver Name: Crystal Rafal Delivery Method: HAND - Hand Delivered Krystyna Days: Prior Verbal Notification: Recipient Understood Notice: Yes Recipient Signature: Yes Med Rec Note Co-signed by Attending: Coverage Notice Comment: Patient Choice [facility] OP Therapy. Reviewer: [id number] Mirella Rosas Notice Issued Date-Time: 09/13/2019 18:07 Notice Type: Patient Choice Letter Notice Delivered To: Patient Relationship to Patient: Self Yard Truck Driver Name: Crystal Rafal Delivery Method: HAND - Hand Delivered Krystyna Days: Prior Verbal Notification: Recipient Understood Notice: Recipient Signature: Yes Med Rec Note Co-signed by Attending: Coverage Notice Comment: Patient choice for [facility] Reviewer: [id number] Mirella Rosas Notice Issued Date-Time: 09/13/2019 18:07 Notice Type: Patient Choice Letter Notice Delivered To: Patient Relationship to Patient: Self Yard Truck Driver Name: Crystal Rafal Delivery Method: HAND - Hand Delivered Krystyna Days: Prior Verbal Notification: Recipient Understood Notice: Yes Recipient Signature: Yes Med Rec Note Co-signed by Attending: Coverage Notice Comment: Patient choice for [facility] OP Therapy Last DP export: 09/14/19 12:52 p Patient Name: JESSICA RUIZ Page [id number] at 1655 All edits/amendments must be made on the electronic document DICTATION DATE: 09/14/191653 LOGISTICS SERVICE REPRESENTATIVE: SAMIR 09/14/191653 RPT#: [id number] DC DATE: STATUS: ADM IN [facility] [address] [place] [address] END OF REPORT
--- NOTE | 2019-09-14 18:03 | NUR ---
ASSISTED PATIENT IN REPOSITIONING IN BED. NO NEEDS AT THIS TIME.
--- NOTE | 2019-09-14 19:59 | NUR ---
PATIENT RESTING IN BED WITH NO S/S OF DISTRESS. BED IN LOWEST POSITION AND CALL LIGHT WITHIN REACH. ENCOURAGED THE PATIENT TO CALL IF SHE HAS NEEDS. WILL CONTINUE TO MONITOR.
[2019-09-14 21:46] VITALS: BP 117/63
[2019-09-14 23:30] VITALS: BP 124/70
[2019-09-15 03:44] VITALS: BP 110/61
[2019-09-15 06:27] LABS: BASOPHILS 0.2 % (0-2); EOSINOPHILS 2.7 % (0-7); HEMATOCRIT 31.3 % (36.0-48.0); HEMOGLOBIN 10.4 g/dL (12-16); IMMATURE GRANULOCYTES 0.3 % (0-5); LYMPHOCYTES 16.9 % (15-50); MCH 29.6 pg (26.0-34.0); MCHC 33.2 g/dL (31.0-37.0); MCV 89.2 fL (80.0-100.0); MEAN PLATELET VOLUME 9.9 fL (7.4-10.4); MONOCYTES 5.3 % (2-11); NEUTROPHILS 74.6 % (40-80); RBC 3.51 10x6/uL (4.00-5.40); RDW 14.7 % (11.5-14.5); WBC 6.6 10x3/uL (4.8-10.8)
[2019-09-15 06:44] LABS: PLATELET COUNT 180 10x3/uL (130-400)
[2019-09-15 06:54] LABS: ALKALINE PHOSPHATASE 165 U/L (30-120); ALT (SGPT) 36 U/L (10-68); BILIRUBIN - TOTAL 0.33 mg/dL (0.2-1.3); CALCIUM 8.3 mg/dL (8.5-10.1); CARBON DIOXIDE 26.9 mmol/L (21.0-32.0); CHLORIDE - SERUM 99 mmol/L (98-107); CREATININE - SERUM 0.4 mg/dL (0.6-1.3); POTASSIUM - SERUM 3.7 mmol/L (3.5-5.1); PROTEIN - SERUM 5.5 g/dL (6.4-8.2); SODIUM 129 mmol/L (136-145); eGFR NON AFRICAN AMERICAN > 90 mL/min (90-120)
[2019-09-15 06:56] LABS: CALC OSMOLALITY 271 mosm/kg (275-300); GLUCOSE 352 mg/dL (74-106); UREA NITROGEN 10 mg/dL (7-18)
[2019-09-15 07:42] VITALS: BP 105/71
--- NOTE | 2019-09-15 11:27 | MORECARE ---
CASE MANAGEMENT DISCHARGE SUMMARY PATIENT: JESSICA RUIZ UNIT: [id number] ADM DATE: 09/13/19 AGE: 39 : 84 SEX: F ROOM/BED: D.1209 AUTHOR: ARASH,DOC PHYSICIAN: REFERRING PHYSICIAN: SHARMIN WINSTON MD DATE OF SERVICE: 09/15/19 Discharge Plan Patient Name: JESSICA RUIZ Facility: [facility]:[place] : 1980 Planned Disposition: Outpatient PT\\OT Anticipated Discharge Date: 09/16/19 Discharge Date: Expected LOS: 3 Initial Reviewer: [email or web address] Initial Review Date: 09/13/2019 Generated: 09/15/19 12:26 pm Comments DCP- Discharge Planning Updated by [email or web address]: Edel Rosas on 09/14/19 3:[address] DC Plan: CM faxed OP Therapy orders to [facility], Attn: Ling. Appointment: Saturday 09/16 @ 1200. CM contacted Zora, with [facility] to verify fax receipt. [facility] will be able to provide the BSC upon DC. CM discussed HHS, Skilled, but the patient declined both. She lives with 3 friends and her 13 year old son. She admitted to PT that she has not been out of bed in the last month and when she got up to go into the bathroom, she fell. Patient has refused to participate with PT this morning. Encouraged her to participate, for a better outcome and voices understanding. Patient is Medicaid Pending. DC plans discussed with patient and she request OP therapy at [facility]. Patient lives with 3 friends and her 13 year old son. DCP- Discharge Planning Updated by [id number]: Edel Rosas on 09/13/19 5:[address] DC Needs: [facility] OutPatient Therapy, BSC (ordered [facility] d/t Medicaid pending). CM met with patient regarding DC needs/plans. Patient is A/O X3. Lives independently with 2 friends and her 13 yr/old son.PCP: "in the works". Pharmacy: [facility], [place]. ADL's: Independent INSULATION INSPECTOR. DME: Glucometer, walker. Emergency contact: Jeanette Montanez (friend) [phone]. Patient gives permission to speak with friend. Community resources: [employer] [place]. Patient states she feels that her home is a safe environment. Denies being hospitalized within past 30 days. Transportation at [place]: [facility] or [place]. Patient Choice for CLOTHING WORKER OP Theray signed. RIPIA - Discharge Planning Initial Assessment Updated by [email or web address]: Edel Rosas on 09/13/19 10:53 am * Is the patient Alert and Oriented? Yes * How many steps to enter\\exit or inside your home? * PCP None. * Pharmacy [facility], [place] * Preadmission Environment Home with Family * ADLs Independent * Equipment Glucometer * List name and contact numbers for known caregivers / representatives who currently or will assist patient after discharge: Jeanette Montanez (friend) [phone] * Verbal permission to speak to the caregivers and representatives has been obtained from the patient. Yes * Please name any agencies selected above. [employer] [place] * Additional services required to return to the preadmission environment? Yes * Can the patient safely return to the preadmission environment? Yes * Has this patient been hospitalized within the prior 30 days at any hospital? No External Providers External Provider: Jose Next Contact Date: Service Request Date: Service Type: Resolution: Reviewer: Comments: Coverage Notice Reviewer: [id number] Mirella Rosas Notice Issued Date-Time: 09/13/2019 11:03 Notice Type: Patient Choice Letter Notice Delivered To: Patient Relationship to Patient: Self Medical Historian Name: Crystal Rafal Delivery Method: HAND - Hand Delivered Krystyna Days: Prior Verbal Notification: Recipient Understood Notice: Yes Recipient Signature: Yes Med Rec Note Co-signed by Attending: Coverage Notice Comment: Patient Choice [facility] OP Therapy. Reviewer: [id number] Mirella Rosas Notice Issued Date-Time: 09/13/2019 18:07 Notice Type: Patient Choice Letter Notice Delivered To: Patient Relationship to Patient: Self Medical Historian Name: Crystal Rafal Delivery Method: HAND - Hand Delivered Krystyna Days: Prior Verbal Notification: Recipient Understood Notice: Recipient Signature: Yes Med Rec Note Co-signed by Attending: Coverage Notice Comment: Patient choice for [facility] Reviewer: [id number] Mirella Rosas Notice Issued Date-Time: 09/13/2019 18:07 Notice Type: Patient Choice Letter Notice Delivered To: Patient Relationship to Patient: Self Medical Historian Name: Crystal Rafal Delivery Method: HAND - Hand Delivered Krystyna Days: Prior Verbal Notification: Recipient Understood Notice: Yes Recipient Signature: Yes Med Rec Note Co-signed by Attending: Coverage Notice Comment: Patient choice for [facility] OP Therapy Last DP export: 09/14/19 3:55 p Patient Name: JESSICA RUIZ Page [id number] at 1127 All edits/amendments must be made on the electronic document DICTATION DATE: 09/15/191125 QUALITY IMPROVEMENT MANAGER: SAMIR 09/15/19 112 RPT#: [id number] DC DATE: STATUS: ADM IN [facility] [address] [place] [address] END OF REPORT
--- NOTE | 2019-09-15 11:33 | MORECARE ---
CASE MANAGEMENT DISCHARGE SUMMARY PATIENT: VIOLA LYLES UNIT: [id number] ADM DATE: 09/13/19 AGE: 39 : 82 SEX: F ROOM/BED: D.1209 AUTHOR: ARASH,DOC PHYSICIAN: REFERRING PHYSICIAN: SHARMIN WINSTON MD DATE OF SERVICE: 09/15/19 Discharge Plan Patient Name: VIOLA LYLES Facility: [facility]:[place] : 1980 Planned Disposition: Outpatient PT\\OT Anticipated Discharge Date: 09/16/19 Discharge Date: Expected LOS: 3 Initial Reviewer: [email or web address] Initial Review Date: 09/13/2019 Generated: 09/15/19 12:33 pm Comments DCP- Discharge Planning Updated by [id number]: Edel Rosas on 09/15/19 10:[address] CM contacted sylvia Covington regarding need for manual w/c. Faxed Ortho progress note indicating the need for a manual w/c. DCP- Discharge Planning Updated by [email or web address]: Edel Rosas on 09/14/19 3:[address] DC Plan: CM faxed OP Therapy orders to [facility], Attn: Ling. Appointment: Saturday 09/16 @ 1200. CM contacted sylvia Blakely to verify fax receipt. [facility] will be able to provide the BSC upon DC. CM discussed HHS, Skilled, but the patient declined both. She lives with 3 friends and her 13 year old son. She admitted to PT that she has not been out of bed in the last month and when she got up to go into the bathroom, she fell. Patient has refused to participate with PT this morning. Encouraged her to participate, for a better outcome and voices understanding. Patient is Medicaid Pending. DC plans discussed with patient and she request OP therapy at [facility]. Patient lives with 3 friends and her 13 year old son. DCP- Discharge Planning Updated by [email or web address]: Edel Rosas on 09/13/19 5:[address] DC Needs: [facility] OutPatient Therapy, BSC (ordered [facility] d/t Medicaid pending). CM met with patient regarding DC needs/plans. Patient is A/O X3. Lives independently with 2 friends and her 13 yr/old son.PCP: "in the works". [facility]. 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 DME: Glucometer, walker. Emergency contact: Jeanette Montanez (friend) [phone]. Patient gives permission to speak with friend. Community resources: [employer]. Patient states she feels that her home is a safe environment. Denies being hospitalized within past 30 days. Transportation at [place]: [employer] or [employer]. Patient Choice for HABILITATIVE INTERVENTIONIST OP Theray signed. DCPIA - Discharge Planning Initial Assessment Updated by [id number]: Edel Rosas on 09/13/19 10:53 am * Is the patient Alert and Oriented? Yes * How many steps to enter\\exit or inside your home? * PCP None. * Pharmacy [facility] * Preadmission Environment Home with Family * ADLs Independent * Equipment Glucometer * List name and contact numbers for known caregivers / representatives who currently or will assist patient after discharge: Jeanette Montanez (friend) [phone] * Verbal permission to speak to the caregivers and representatives has been obtained from the patient. Yes * Please name any agencies selected above. [employer] * Additional services required to return to the preadmission environment? Yes * Can the patient safely return to the preadmission environment? Yes * Has this patient been hospitalized within the prior 30 days at any hospital? No Coverage Notice Reviewer: [id number] Mirella Rosas Notice Issued Date-Time: 09/13/2019 18:07 Notice Type: Patient Choice Letter Notice Delivered To: Patient Relationship to Patient: Self Fire Prevention Bureau Captain Name: Viola Lyles Delivery Method: HAND - Hand Delivered Krystyna Days: Prior Verbal Notification: Recipient Understood Notice: Yes Recipient Signature: Yes Med Rec Note Co-signed by Attending: Coverage Notice Comment: Patient choice for [facility] OP Therapy Reviewer: [id number] Mirella Rosas Notice Issued Date-Time: 09/13/2019 18:07 Notice Type: Patient Choice Letter Notice Delivered To: Patient Relationship to Patient: Self Fire Prevention Bureau Captain Name: Viola Lyles Delivery Method: HAND - Hand Delivered Krystyna Days: Prior Verbal Notification: Recipient Understood Notice: Recipient Signature: Yes Med Rec Note Co-signed by Attending: Coverage Notice Comment: [facility] Reviewer: [id number] Mirella Rosas Notice Issued Date-Time: 09/13/2019 11:03 Notice Type: Patient Choice Letter Notice Delivered To: Patient Relationship to Patient: Self Fire Prevention Bureau Captain Name: Viola Lyles Delivery Method: HAND - Hand Delivered Krystyna Days: Prior Verbal Notification: Recipient Understood Notice: Yes Recipient Signature: Yes Med Rec Note Co-signed by Attending: Coverage Notice Comment: Patient Choice [facility] OP Therapy. Last DP export: 09/15/19 10:27 a Patient Name: VIOLA LYLES Page [id number] at 1133 All edits/amendments must be made on the electronic document DICTATION DATE: 09/15/19 1133 DISH UP PERSON: SAMIR 09/15/19 1133 RPT#: [id number] DC DATE: STATUS: ADM IN [facility] [address] [place] [address] END OF REPORT
--- NOTE | 2019-09-15 11:40 | MORECARE ---
CASE MANAGEMENT DISCHARGE SUMMARY PATIENT: VIOLA LYLES UNIT: [id number] ADM DATE: 09/13/19 AGE: 39 : 82 SEX: F ROOM/BED: D.1209 AUTHOR: ARASH,DOC PHYSICIAN: REFERRING PHYSICIAN: SHARMIN WINSTON MD DATE OF SERVICE: 09/15/19 Discharge Plan Patient Name: VIOLA LYLES Facility: [facility]:[place] : 1980 Planned Disposition: Outpatient PT\\OT Anticipated Discharge Date: 09/16/19 Discharge Date: Expected LOS: 3 Initial Reviewer: [email or web address] Initial Review Date: 09/13/2019 Generated: 09/15/19 12:40 pm DCP- Discharge Planning Updated by [email or web address]: Edel Rosas on 09/15/19 10:[address] CM contacted [facility]via Covington regarding need for manual w/c. Faxed Ortho progress note indicating the need for a manual w/c. Patient reports that she has had a CVA, with resultant foot drop and Endocarditis in 2014. This was not disclosed until 09/13. She also indicates her PCP was Dr. Aubrie Reyes PTA. DCP- Discharge Planning Updated by [email or web address]: Edel Rosas on 09/14/19 3:[address] DC Plan: CM faxed OP Therapy orders to [facility], Attn: Ling. Appointment: Saturday 09/16 @ 1200. NYDIA contacted Zora with [facility] to verify fax receipt. [facility] will be able to provide the BSC upon DC. CM discussed HHS, Skilled, but the patient declined both. She lives with 3 friends and her 13 year old son. She admitted to PT that she has not been out of bed in the last month and when she got up to go into the bathroom, she fell. Patient has refused to participate with PT this morning. Encouraged her to participate, for a better outcome and voices understanding. Patient is Medicaid Pending. DC plans discussed with patient and she request OP therapy at [facility]. Patient lives with 3 friends and her 13 year old son. DCP- Discharge Planning Updated by [email or web address]: Edel Rosas on 09/13/19 5:[address] DC Needs: [facility] OutPatient Therapy, BSC (ordered [facility] d/t Medicaid pending). CM met with patient regarding DC needs/plans. Patient is A/O X3. Lives independently with 2 friends and her 13 yr/old son.PCP: "in the works". [facility]. 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 DME: Glucometer, walker. Emergency contact: Jeanette Montanez (friend) [phone]. Patient gives permission to speak with friend. Community resources: [employer]. Patient states she feels that her home is a safe environment. Denies being hospitalized within past 30 days. Transportation at [place]: [employer] or [employer]. Patient Choice for SUBSYSTEMS ENGINEER OP Theray signed. MAPIA - Discharge Planning Initial Assessment Updated by [email or web address]: Edel Rosas on 09/13/19 10:53 am * Is the patient Alert and Oriented? Yes * How many steps to enter\\exit or inside your home? * PCP None. * Pharmacy [facility] * Preadmission Environment Home with Family * ADLs Independent * Equipment Glucometer * List name and contact numbers for known caregivers / representatives who currently or will assist patient after discharge: Jeanette Montanez (friend) [phone] * Verbal permission to speak to the caregivers and representatives has been obtained from the patient. Yes * Please name any agencies selected above. [employer] * Additional services required to return to the preadmission environment? Yes * Can the patient safely return to the preadmission environment? Yes * Has this patient been hospitalized within the prior 30 days at any hospital? No Coverage Notice Reviewer: [id number] Mirella Rosas Notice Issued Date-Time: 09/13/2019 18:07 Notice Type: Patient Choice Letter Notice Delivered To: Patient Relationship to Patient: Self Licensed Esthetician Name: Viola Lyles Delivery Method: HAND - Hand Delivered Krystyna Days: Prior Verbal Notification: Recipient Understood Notice: Yes Recipient Signature: Yes Med Rec Note Co-signed by Attending: Coverage Notice Comment: Patient choice for [facility] OP Therapy Reviewer: [id number] Mirella Rosas Notice Issued Date-Time: 09/13/2019 18:07 Notice Type: Patient Choice Letter Notice Delivered To: Patient Relationship to Patient: Self Licensed Esthetician Name: Viola Lyles Delivery Method: HAND - Hand Delivered Krystyna Days: Prior Verbal Notification: Recipient Understood Notice: Recipient Signature: Yes Med Rec Note Co-signed by Attending: Coverage Notice Comment: Patient choice for [facility] Reviewer: [id number] - Edel Rosas Notice Issued Date-Time: 09/13/2019 11:03 Notice Type: Patient Choice Letter Notice Delivered To: Patient Relationship to Patient: Self Licensed Esthetician Name: Viola Lyles Delivery Method: HAND - Hand Delivered Krystyna Days: Prior Verbal Notification: Recipient Understood Notice: Yes Recipient Signature: Yes Med Rec Note Co-signed by Attending: Coverage Notice Comment: Patient Choice [facility] OP Therapy. Last DP export: 09/15/19 10:33 a Patient Name: VIOLA LYLES Page [id number] at 1140 All edits/amendments must be made on the electronic document DICTATION DATE: 09/15/19 1140 TOWER DIRECTOR: SAMIR 09/15/19 1140 RPT#: [id number] DC DATE: STATUS: ADM IN [facility] [address] [place] [address] END OF REPORT
[2019-09-15 20:00] VITALS: BP 112/67
--- NOTE | 2019-09-15 20:00 | NUR ---
ALERT RESTING IN BED, C/O PAIN TO RIGHT HIP AND UNABLE TO GET COMFORTABLE, ASSISTED TO REPOSITION, DRESSINGS INTACT TO RIGHT HIP, SEE SHIFT ASSESSMENT, CALL LIGHT IN REACH
[2019-09-16 04:00] VITALS: BP 120/52
--- NOTE | 2019-09-16 08:06 | NUR ---
PT RESTING IN BED WITH RIGHT LOWER EXTREMITY ELEVATED ON PILLOW. RESP EVEN AND UNLABORED. RATES PAIN 8/10 AT THIS TIME. SALINE LOC TO RIGHT FOREARM, SITE WITHOUT REDNESS OR EDEMA. PT UTILIZES MONKEY BARS TO MOVE SELF IN BED. DRESSINGS X 3 C/D/I TO RIGHT HIP. DENIES FURTHER NEEDS AT THIS TIME. ENCOURAGED TO CALL WITH NEEDS. CL WITHIN REACH.
[2019-09-16 08:15] VITALS: BP 108/50
[2019-09-16 08:19] LABS: BASOPHILS 0.1 % (0-2); EOSINOPHILS 3.5 % (0-7); HEMATOCRIT 29.1 % (36.0-48.0); HEMOGLOBIN 9.6 g/dL (12-16); IMMATURE GRANULOCYTES 0.3 % (0-5); LYMPHOCYTES 15.2 % (15-50); MCH 29.4 pg (26.0-34.0); MEAN PLATELET VOLUME 10.1 fL (7.4-10.4); MONOCYTES 6.6 % (2-11); NEUTROPHILS 74.3 % (40-80); PLATELET COUNT 176 10x3/uL (130-400); RBC 3.27 10x6/uL (4.00-5.40); RDW 14.8 % (11.5-14.5); WBC 7.1 10x3/uL (4.8-10.8)
[2019-09-16 08:21] LABS: ALBUMIN 2.1 g/dL (3.4-5.0); ALKALINE PHOSPHATASE 168 U/L (30-120); ALT (SGPT) 30 U/L (10-68); BILIRUBIN - TOTAL 0.37 mg/dL (0.2-1.3); CARBON DIOXIDE 25.6 mmol/L (21.0-32.0); CHLORIDE - SERUM 100 mmol/L (98-107); POTASSIUM - SERUM 4.1 mmol/L (3.5-5.1); PROTEIN - SERUM 5.2 g/dL (6.4-8.2); SODIUM 133 mmol/L (136-145)
[2019-09-16 08:23] LABS: CALC OSMOLALITY 277 mosm/kg (275-300); CREATININE - SERUM 0.6 mg/dL (0.6-1.3); GLUCOSE 297 mg/dL (74-106); UREA NITROGEN 14 mg/dL (7-18); eGFR NON AFRICAN AMERICAN > 90 mL/min (90-120)
--- NOTE | 2019-09-16 10:15 | NUR ---
ANSWERED PT CALL LIGHT. PT PRESENTS WITH ANXIETY AND TEARFUL. VOICING INABILITY TO GET COMFORTABLE. RESTLESS, CONTINUOUS MOVEMENT OF UPPER EXTREMITY AND NEED TO MOVE. WORKED WITH PT TO GET COMFORTABLE POSSIBLE. PT LESS RESTLESS. APPLIED NEW DRESSING TO RIGHT HIP. CL WITHIN REACH. ENCOURAGED TO CALL WITH NEEDS.
[2019-09-16 12:36] VITALS: BP 120/66
--- NOTE | 2019-09-16 13:27 | NUR ---
Nutrition Follow-up: Eating very well and requests more food. About to eat lunch at time of visit. Poor dentition. Reports that she weighed 250# in 2015 and has been progressively losing wt since. Diet: Diabetic Wt: 105# (09/12) Labs noted: Na 133, Glu 297, Ca 8.0, Alb 2.1 Meds noted: Humalog, Lantus, Protonix, Pepcid *Using the following GLIM criteria, pt assessed at moderate malnutrition: 1. Phenotypic: -Low BMI -BMI 19.2 in a 39 year old 2. Etiologic: -Inflammation -Chronic disease - DM - A1C 13.5 -Will add dental soft to current diet order and add extra protein and non-starchy vegetables to meal trays. -Discussed diabetic diet; will attempt to further educate prior to d/c. May also benefit from OP DM educ. -Monitor wt. -RD following.
[2019-09-16 16:30] VITALS: BP 106/62
--- NOTE | 2019-09-16 17:20 | NUR ---
PT SITTING UP IN BED EATING DINNER. NO ACUTE DISTRESS NOTED. ASSISTED PT WITH REPOSITIONING IN BED. DENIES FURTHER NEEDS AT THIS TIME. CL WITHIN REACH. ENCOURAGED TO CALL WITH NEEDS.
[2019-09-16 20:00] VITALS: BP 118/68
--- NOTE | 2019-09-16 20:00 | NUR ---
ALERT RESTING IN BED ASSISTED TO BEDSIDE COMODE AND BACK TO BED, SEE SHIFT ASSESSMENT, CALL LIGHT IN REACH, REPORTS CONSTIPATION, ORDER FOR SENOKOT, SLIGHT EDEMA NOTED TO RIGHT FOOT WHICH ALSO HAS FOOT DROP FROM PREVIOUS CVA, STATES IT SWELLS SOMETIMES GOOD PEDAL PULSES NOTED
--- NOTE | 2019-09-17 04:28 | NUR ---
PT REFUSED 8 UNITS OF INSULIN AT MIDNIGHT FOR ACCU CHECK OF 177, STATING IM GOING BACK TO SLEEP, LATER WAS EATING PUDDING AND SANDWICH, NOW ACCUCHECK 379 AND 24 UNITS OF INSULIN GIVEN ORDERED
[2019-09-17 08:03] LABS: BASOPHILS 0.2 % (0-2); EOSINOPHILS 5.6 % (0-7); HEMATOCRIT 30.6 % (36.0-48.0); IMMATURE GRANULOCYTES 0.3 % (0-5); LYMPHOCYTES 25.7 % (15-50); MCH 29.4 pg (26.0-34.0); MCHC 32.7 g/dL (31.0-37.0); MEAN PLATELET VOLUME 10.4 fL (7.4-10.4); NEUTROPHILS 59.2 % (40-80); RDW 14.7 % (11.5-14.5); WBC 6.4 10x3/uL (4.8-10.8)
[2019-09-17 08:05] VITALS: BP 111/61
[2019-09-17 08:18] LABS: ALBUMIN 1.9 g/dL (3.4-5.0); ALKALINE PHOSPHATASE 243 U/L (30-120); ALT (SGPT) 33 U/L (10-68); CALCIUM 8.7 mg/dL (8.5-10.1); CARBON DIOXIDE 31.3 mmol/L (21.0-32.0); CHLORIDE - SERUM 100 mmol/L (98-107); CREATININE - SERUM 0.5 mg/dL (0.6-1.3); POTASSIUM - SERUM 3.7 mmol/L (3.5-5.1); SODIUM 136 mmol/L (136-145); UREA NITROGEN 15 mg/dL (7-18); eGFR NON AFRICAN AMERICAN > 90 mL/min (90-120)
[2019-09-17 08:19] LABS: CALC OSMOLALITY 271 mosm/kg (275-300); GLUCOSE 88 mg/dL (74-106)
[2019-09-17 08:21] LABS: PLATELET COUNT 216 10x3/uL (130-400)
--- NOTE | 2019-09-17 08:35 | NUR ---
Nutrition education for DMT2: Pt eating breakfast when RDN arrived. Pt reports she has not been taking her insulin as ordered due to she has been focused on taking care of her 13 y/o son with DMT1. Pt reports DHS is monitoring her closely due her sons multiple ER visits over the last year. Pt states she eats a lot of canned Ravioli, Spaghetios and other canned pasta foods. Pt does have a kitchen and can cook but choses not to cook. Pt also c/o adult male roommate that throws out her healthy foods and stocks a lot of junk, high sugar foods that she and her son eat. Pt also states she has cut down on soda intake. Reviewed CHO containing foods and the affect CHO have on glucose. Reviewed todays pt menus and pt has ordered an appropriate amount of CHO with meals. Advised pt to stop snacking so much between meals to let glucose start to normalize. Pt with good understanding of CHO foods and has had diabetic education in the past. Pt with the knowledge base to know what she needs to do; however, pt with no motivation to do it. Provided pt with printed diet information and RDN name and phone number. RDN will be available if needed. Thank you for the consult.
[2019-09-17] MEDS ORDERED: ELIQUIS2.5 MG PO (10:07)
[2019-09-17] MEDS ORDERED: HYDROCODON-ACE1 EA10 PO (10:07)
--- NOTE | 2019-09-17 10:16 | MORECARE ---
CASE MANAGEMENT DISCHARGE SUMMARY PATIENT: VIOLA LYLES UNIT: [id number] ADM DATE: 09/13/19 AGE: 39 : 82 SEX: F ROOM/BED: D.1209 AUTHOR: ARASH,DOC PHYSICIAN: REFERRING PHYSICIAN: SHARMIN WINSTON MD DATE OF SERVICE: 09/17/19 Discharge Plan Patient Name: VIOLA LYLES Facility: [facility]:[place] : 1980 Planned Disposition: Outpatient PT\\OT Anticipated Discharge Date: 09/16/19 Discharge Date: Expected LOS: 3 Initial Reviewer: [email or web address] Initial Review Date: 09/13/2019 Generated: 09/17/19 11:15 am DCP- Discharge Planning Updated by [email or web address]: Edel Rosas on 09/15/19 10:[address] CM contacted sylvia Covington regarding need for manual w/c. Faxed Ortho progress note indicating the need for a manual w/c. Patient reports that she has had a CVA, with resultant foot drop and Endocarditis in 2014. This was not disclosed until 09/13. She also indicates her PCP was Dr. Aubrie Reyes PTA. DCP- Discharge Planning Updated by [id number]: Edel Rosas on 09/14/19 3:[address] DC Plan: CM faxed OP Therapy orders to [facility], Attn: Ling. Appointment: Saturday 09/16 @ 1200. NYDIA contacted Zora with [facility] to verify fax receipt. [facility] will be able to provide the BSC upon DC. CM discussed HHS, Skilled, but the patient declined both. She lives with 3 friends and her 13 year old son. She admitted to PT that she has not been out of bed in the last month and when she got up to go into the bathroom, she fell. Patient has refused to participate with PT this morning. Encouraged her to participate, for a better outcome and voices understanding. Patient is Medicaid Pending. DC plans discussed with patient and she request OP therapy at [facility]. Patient lives with 3 friends and her 13 year old son. DCP- Discharge Planning Updated by [email or web address]: Edel Rosas on 09/13/19 5:[address] DC Needs: [facility] OutPatient Therapy, BSC (ordered [facility] d/t Medicaid pending). CM met with patient regarding DC needs/plans. Patient is A/O X3. Lives independently with 2 friends and her 13 yr/old son.PCP: "in the works". [facility]. 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 DME: Glucometer, walker. Emergency contact: Jeanette Montanez (friend) [phone]. Patient gives permission to speak with friend. Community resources: [employer]. Patient states she feels that her home is a safe environment. Denies being hospitalized within past 30 days. Transportation at [place]: [employer] or [employer]. Patient Choice for CRM TECHNICAL LEAD OP Theray signed. GAPIA - Discharge Planning Initial Assessment Updated by [email or web address]: Edel Rosas on 09/13/19 10:53 am * Is the patient Alert and Oriented? Yes * How many steps to enter\\exit or inside your home? * PCP None. * Pharmacy [facility] * Preadmission Environment Home with Family * ADLs Independent * Equipment Glucometer * List name and contact numbers for known caregivers / representatives who currently or will assist patient after discharge: Jeanette Montanez (friend) [phone] * Verbal permission to speak to the caregivers and representatives has been obtained from the patient. Yes * Please name any agencies selected above. [employer] * Additional services required to return to the preadmission environment? Yes * Can the patient safely return to the preadmission environment? Yes * Has this patient been hospitalized within the prior 30 days at any hospital? No Coverage Notice Reviewer: [id number] Mirella oRsas Notice Issued Date-Time: 09/13/2019 11:03 Notice Type: Patient Choice Letter Notice Delivered To: Patient Relationship to Patient: Self Hardness Tester Name: Viola Lyles Delivery Method: HAND - Hand Delivered Krystyna Days: Prior Verbal Notification: Recipient Understood Notice: Yes Recipient Signature: Yes Med Rec Note Co-signed by Attending: Coverage Notice Comment: Patient Choice [facility] OP Therapy. Reviewer: [id number] Mirella Rosas Notice Issued Date-Time: 09/13/2019 18:07 Notice Type: Patient Choice Letter Notice Delivered To: Patient Relationship to Patient: Self Hardness Tester Name: Viola Lyles Delivery Method: HAND - Hand Delivered Krystyna Days: Prior Verbal Notification: Recipient Understood Notice: Recipient Signature: Yes Med Rec Note Co-signed by Attending: Coverage Notice Comment: Patient choice for [facility] Reviewer: [id number] - Edel Rosas Notice Issued Date-Time: 09/13/2019 18:07 Notice Type: Patient Choice Letter Notice Delivered To: Patient Relationship to Patient: Self Hardness Tester Name: Viola Lyles Delivery Method: HAND - Hand Delivered Krystyna Days: Prior Verbal Notification: Recipient Understood Notice: Yes Recipient Signature: Yes Med Rec Note Co-signed by Attending: Coverage Notice Comment: Patient choice for [facility] OP Therapy Last DP export: 09/15/19 10:40 a Patient Name: VIOLA LYLES Page [id number] at 1016 All edits/amendments must be made on the electronic document DICTATION DATE: 09/17/19 1015 MUD ANALYSIS WELL LOGGING OPERATOR: SAMIR 09/17/19 1015 RPT#: [id number] DC DATE: STATUS: ADM IN [facility] [address] [place] [address] END OF REPORT
[2019-09-17] MEDS ORDERED: TESSALON PERLE100 MG PO (11:07)
[2019-09-17] MEDS ORDERED: Nicoderm [PBKC] TRANSDERM (11:07)
[2019-09-17] MEDS ORDERED: MUCINEX600 MG PO (11:07)
[2019-09-17] MEDS ORDERED: LANTUS INSULIN SQ (11:39)
--- NOTE | 2019-09-17 11:46 | NUR ---
SENDING A MONTH SUPPLY OF LANTUS HOME WITH PATIENT. LANTUS 35 UNITS DAILY #4 PENS RX BY [facility]/DR. HERNANDEZ APPROVED BY ADMINISTRATION/SAMIA DEXTER
[2019-09-17 11:52] VITALS: BP 99/53
--- NOTE | 2019-09-17 12:35 | MORECARE ---
CASE MANAGEMENT DISCHARGE SUMMARY PATIENT: JESSICA LYLES UNIT: [id number] ADM DATE: 09/13/19 AGE: 39 : 82 SEX: F ROOM/BED: D.1209 AUTHOR: ARASH,DOC PHYSICIAN: REFERRING PHYSICIAN: SHARMIN WINSTON MD DATE OF SERVICE: 09/17/19 Discharge Plan Patient Name: JESSICA LYLES Facility: [facility]:[place] : 1980 Planned Disposition: Outpatient PT\\OT Anticipated Discharge Date: 09/16/19 Discharge Date: Expected LOS: 3 Initial Reviewer: [email or web address] Initial Review Date: 09/13/2019 Generated: 09/17/19 1:34 pm Comments DCP- Discharge Planning Updated by [email or web address]: Edel Rosas on 09/17/19 11:[address] CM notified [facility] of DC, per Chinmay, the BSC and W/C will be delivered to patient's home, today. Phone #[phone], option 1. [facility] OP Therapy appointment: September 19 @1:30. . Diabetic Education appointment with Dietary: FridaySeptember 27 @1230. Phone #[phone]. Glucometer, strips, lancets, needles for 30 days, charged to CM account, from [facility], delivered to patient. Lantus Pens X4 for 30 day supply, charged to CM account, given to nursing, for patient's DC. CM has contacted Tanesha Gutierrez, CM Director, obtained approval for above. Notified Nydia Pappas, Administration O/C notified and approval obtained. DCP- Discharge Planning Updated by [id number]: Edel Rosas on 09/15/19 10:[address] CM contacted Adria with [facility] regarding need for manual w/c. Faxed Ortho progress note indicating the need for a manual w/c. Patient reports that she has had a CVA, with resultant foot drop and Endocarditis in 2014. This was not disclosed until 09/13. She also indicates her PCP was Dr. Aubrie Reyes PTA. DCP- Discharge Planning Updated by [id number]: Edel Rosas on 09/14/19 3:[address] DC Plan: CM faxed OP Therapy orders to [facility] Therapy, Attn: Ling. Appointment: Saturday 09/16 @ 1200. CM contacted Zora, with [facility] to verify fax receipt. [facility] will be able to provide the BSC upon DC. CM discussed HHS, Skilled, but the patient declined both. She lives with 3 friends and her 13 year old son. She admitted to PT that she has not been out of bed in the last month and when she got up to go into the bathroom, she fell. Patient has refused to participate with PT this morning. Encouraged her to participate, for a better outcome and voices understanding. Patient is Medicaid Pending. DC plans discussed with patient and she request OP therapy at [facility]. Patient lives with 3 friends and her 13 year old son. DCP- Discharge Planning Updated by [id number]: Edel Rosas on 09/13/19 5:[address] DC Needs: [facility] OutPatient Therapy, BSC (ordered Anabel d/t Medicaid pending). CM met with patient regarding DC needs/plans. Patient is A/O X3. Lives independently with 2 friends and her 13 yr/old son.PCP: "in the works". [facility]acy: [facility]. 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 DME: Glucometer, [employer]. Emergency contact: Jeanette Montanez (friend) [phone]. Patient gives permission to speak with friend. Community resources: [employer]. Patient states she feels that her home is a safe environment. Denies being hospitalized within past 30 days. Transportation at ID: [employer] or [employer]. Patient Choice for [facility] OP Theray signed. DCPIA - Discharge Planning Initial Assessment Updated by [id number]: Edel Rosas on 09/13/19 10:53 am * Is the patient Alert and Oriented? Yes * How many steps to enter\\exit or inside your home? * PCP None. * [facility]acy [facility] * Preadmission Environment Home with Family * ADLs Independent * Equipment Glucometer * List name and contact numbers for known caregivers / representatives who currently or will assist patient after discharge: Jeanette Montanez (friend) [phone] * Verbal permission to speak to the caregivers and representatives has been obtained from the patient. Yes * Please name any agencies selected above. [employer] * Additional services required to return to the preadmission environment? Yes * Can the patient safely return to the preadmission environment? Yes * Has this patient been hospitalized within the prior 30 days at any hospital? No Coverage Notice Reviewer: [id number] Rosas Notice Issued Date-Time: 09/13/2019 11:03 Notice Type: Patient Choice Letter Notice Delivered To: Patient Relationship to Patient: Self Looseleaf Binder Coverer Name: Jessica Lyles Delivery Method: HAND - Hand Delivered Krystyna Days: Prior Verbal Notification: Recipient Understood Notice: Yes Recipient Signature: Yes Med Rec Note Co-signed by Attending: Coverage Notice Comment: Patient Choice [facility] OP Therapy. Reviewer: [id number] Rosas Notice Issued Date-Time: 09/13/2019 18:07 Notice Type: Patient Choice Letter Notice Delivered To: Patient Relationship to Patient: Self Looseleaf Binder Coverer Name: Jessica Lyles Delivery Method: HAND - Hand Delivered Krystyna Days: Prior Verbal Notification: Recipient Understood Notice: Recipient Signature: Yes Med Rec Note Co-signed by Attending: Coverage Notice Comment: Patient choice for [facility] Reviewer: [id number] Rosas Notice Issued Date-Time: 09/13/2019 18:07 Notice Type: Patient Choice Letter Notice Delivered To: Patient Relationship to Patient: Self Looseleaf Binder Coverer Name: Jessica Lyles Delivery Method: HAND - Hand Delivered Krystyna Days: Prior Verbal Notification: Recipient Understood Notice: Yes Recipient Signature: Yes Med Rec Note Co-signed by Attending: Coverage Notice Comment: Patient choice for [facility] OP Therapy Last DP export: 09/17/19 9:16 a Patient Name: JESSICA LYLES Page [id number] at 1235 All edits/amendments must be made on the electronic document DICTATION DATE: 09/17/19 1234 RECEIVER/LABORER: SAMIR 09/17/19 1234 RPT#: [id number] DC DATE: STATUS: ADM IN [facility] [address] [place] [address] END OF REPORT
--- NOTE | 2019-09-17 12:57 | NUR ---
called to room per patient. feels blood sugar had dropped due to clamminess and nausea. bs checked and results 80. 100% of meal consumed.
--- NOTE | 2019-09-17 13:26 | NUR ---
pt checked and states is feeling better. requested maxim mcgowan x 1. given. instructed that this was the one time only. pt voiced understanding
--- NOTE | 2019-09-17 13:58 | NUR ---
dressing changed to right hip. all 3 incisions with connie clean dry intact with no reddness or drainage noted. another set of dressings given to patient to change on friday. iv removed from right forearm. discharge instructions given with questions answered. awaiting clothes and ride home.
--- NOTE | 2019-09-17 16:15 | MORECARE ---
CASE MANAGEMENT DISCHARGE SUMMARY PATIENT: JESSICA LYLES UNIT: [id number] ADM DATE: 09/13/19 AGE: 39 : 84 SEX: F ROOM/BED: D.1209 AUTHOR: ARASH,DOC PHYSICIAN: REFERRING PHYSICIAN: SHARMIN WINSTON MD DATE OF SERVICE: 09/17/19 Discharge Plan Patient Name: JESSICA LYLES [facility] [facility] 1980 Planned Disposition: Outpatient PT\\OT Anticipated Discharge Date: 09/16/19 Discharge Date: 09/17/2019 Expected LOS: 3 Initial Reviewer: [id number] Initial Review Date: 09/13/2019 Generated: 09/17/19 5:14 pm Comments DCP- Discharge Planning Updated by [email or web address]: Edel Rosas on 09/17/19 11:[address] CM notified Anabel of DC, per Chinmay, the BSC and W/C will be delivered to patient's home, today. Phone #[phone], option 1. [facility] OP Therapy appointment: September 19 @1:30. . Diabetic Education appointment with Dietary: FridaySeptember 27 @1230. Phone #[phone]. Glucometer, strips, lancets, needles for 30 days, charged to CM account, from [facility], delivered to patient. Lantus Pens X4 for 30 day supply, charged to account, given to nursing, for patient's DC. CM has contacted Tanesha Gutierrez, CM Director, obtained approval for above. Notified Nydia Pappas, Administration O/C notified and approval obtained. DCP- Discharge Planning Updated by [email or web address]: Edel Rosas on 09/15/19 10:[address] CM contacted sylvia [place] regarding need for manual w/c. Faxed Ortho progress note indicating the need for a manual w/c. Patient reports that she has had a CVA, with resultant foot drop and Endocarditis in 2014. This was not disclosed until 09/13. She also indicates her PCP was Dr. Aubrie Reyes PTA. DCP- Discharge Planning Updated by [id number]: Edel Rosas on 09/14/19 3:[address] DC Plan: CM faxed OP Therapy orders to [facility] Therapy, Attn: Ling. Appointment: Saturday 09/16 @ 1200. CM contacted Zora, with [facility] to verify fax receipt. [facility] will be able to provide the BSC upon DC. CM discussed HHS, Skilled, but the patient declined both. She lives with 3 friends and her 13 year old son. She admitted to PT that she has not been out of bed in the last month and when she got up to go into the bathroom, she fell. Patient has refused to participate with PT this morning. Encouraged her to participate, for a better outcome and voices understanding. Patient is Medicaid Pending. DC plans discussed with patient and she request OP therapy at [facility]. Patient lives with 3 friends and her 13 year old son. DCP- Discharge Planning Updated by [email or web address]: Edel Godwinlroy on 09/13/19 5:[address] DC Needs: [facility] OutPatient Therapy, BSC (ordered Anabel d/t Medicaid pending). CM met with patient regarding DC needs/plans. Patient is A/O X3. Lives independently with 2 friends and her 13 yr/old son.PCP: "in the works". Pharmacy: [facility]. 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 DME: [employer]. Emergency contact: Jeanette Montanez (friend) [phone]. Patient gives permission to speak with friend. Community resources: [employer]. Patient states she feels that her home is a safe environment. Denies being hospitalized within past 30 days. Transportation at DC: [place] or [employer]. Patient Choice for [facility] OP Theray signed. DCPIA - Discharge Planning Initial Assessment Updated by [email or web address]: Edel Godwinlroy on 09/13/19 10:53 am * Is the patient Alert and Oriented? Yes * How many steps to enter\\exit or inside your home? * PCP None. * [facility]acy [facility] * Preadmission Environment Home with Family * ADLs Independent * Equipment Glucometer * List name and contact numbers for known caregivers / representatives who currently or will assist patient after discharge: Jeanette Montanez (friend) [phone] * Verbal permission to speak to the caregivers and representatives has been obtained from the patient. Yes * Please name any agencies selected above. [employer] * Additional services required to return to the preadmission environment? Yes * Can the patient safely return to the preadmission environment? Yes * Has this patient been hospitalized within the prior 30 days at any hospital? No Coverage Notice Reviewer: [id number] Rosas Notice Issued Date-Time: 09/13/2019 11:03 Notice Type: Patient Choice Letter Notice Delivered To: Patient Relationship to Patient: Self Information Security Associate Name: Jessica Lyles Delivery Method: HAND - Hand Delivered Krystyna Days: Prior Verbal Notification: Recipient Understood Notice: Yes Recipient Signature: Yes Med Rec Note Co-signed by Attending: Coverage Notice Comment: Patient Choice [facility] OP Therapy. Reviewer: [id number] Mirella Rosas Notice Issued Date-Time: 09/13/2019 18:07 Notice Type: Patient Choice Letter Notice Delivered To: Patient Relationship to Patient: Self Information Security Associate Name: Jessica Lyles Delivery Method: HAND - Hand Delivered Krystyna Days: Prior Verbal Notification: Recipient Understood Notice: Recipient Signature: Yes Med Rec Note Co-signed by Attending: Coverage Notice Comment: Patient choice for [facility] Reviewer: [id number] Mirella Rosas Notice Issued Date-Time: 09/13/2019 18:07 Notice Type: Patient Choice Letter Notice Delivered To: Patient Relationship to Patient: Self Information Security Associate Name: Jessica Lyles Delivery Method: HAND - Hand Delivered Krystyna Days: Prior Verbal Notification: Recipient Understood Notice: Yes Recipient Signature: Yes Med Rec Note Co-signed by Attending: Coverage Notice Comment: Patient choice for [facility] OP Therapy Last DP export: 09/17/19 11:35 a Patient Name: JESSICA LYLES Page [id number] at 1615 All edits/amendments must be made on the electronic document DICTATION DATE: 09/17/19 1614 FLEET DRIVER: SAMIR 09/17/19 1614 RPT#: [id number] DC DATE:09/17/19 STATUS: DIS IN [facility] [address] [place] [address] END OF REPORT
--- NOTE | 2019-09-20 11:11 | OP ---
PATIENT NAME: JESSICA RUIZ MEDICAL RECORD: [id number] :84 LOCATION:D.M3 D.1209 ADMISSION DATE:09/13/19 SURGEON: ROXANNE DAILY MD DATE OF OPERATION: 09/13/2019 PREOPERATIVE DIAGNOSIS: Right intertrochanteric hip fracture. POSTOPERATIVE DIAGNOSIS: Right intertrochanteric hip fracture. PROCEDURE: Right gamma nail for intertrochanteric hip fracture. SURGEON: Roxanne Daily MD MANAGER FRENCH SURGEON: STEVE Segura ANESTHESIA: General. INTRAOPERATIVE COMPLICATIONS: None. SUMMARY OF PATHOLOGIC FINDINGS: The patient had a fractured intertrochanteric consistent with preoperative radiographs and CT scan INDICATION: A 39-year-old female who was in very poor health with a hemoglobin A1c of over 13, fell and sustained the intraoperative hip fracture. She also has osteoporosis. OPERATIVE SUMMARY IN DETAIL: After obtaining the appropriate preoperative orthopedic surgery consent as well as anesthetic consultation, evaluation and clearance, the patient was brought to the operating room and placed on the operating table in a supine position. After general laryngeal mask airway was administered, the patient was placed on the fracture table. The left leg was placed in the well-leg nathan, the right leg was placed in traction. She was held firmly to the operating table using the vacuum pack suction system as well as the strap belt and sheet suspension. Under fluoroscopic guidance, the fracture was reduced. The right hip was then prepped and draped in routine sterile fashion. At this point, the appropriate timeout was taken and agreed upon by all. Incision was made superior to the tip of the greater trochanter. Awl was then utilized to create an opening portal. Ball tip guidewire was then passed down. Proximal reaming was then followed by insertion of the 125 gamma nail to the appropriate depth as seen on fluoroscopy. Guide pin was then placed into the femoral head on AP and lateral fluoroscopic planes. Appropriate reaming was then followed by insertion of the compression screw. Compression screw was inserted to the appropriate position. The derotational screw was then placed and then it was checked to be sure, it was allowed to compress, but not rotate. Compression of the screw was then followed by insertion of the distal interlocking screw again, all under fluoroscopic guidance. Radiographs were submitted on AP and lateral planes, sent to radiologist for final review. Wound was then irrigated and closed by STEVE Segura, #1 Vicryl, 2-0 Vicryl and skin connie. Sterile dressings were applied. The patient was awakened and taken to recovery room in stable condition. All final needle and sponge counts were correct. TRANSINT:[id number] Voice Confirmation ID: [id number] DOCUMENT ID: [id number] OPERATIVE REPORT [id number] JESSICA RUIZ MD, ROXANNE GIRALDO at 1111 CC: [id number] DICTATION DATE: 09/16/19 0833 FIREBREAK CUTTER: 09/16/19 1454 DIS IN 09/17/19 [facility] [address] [place] [address]
== END 2019-09-17 14:50 | disposition home or self-care (01) | DRG 481 ==
LOC: D.ER 01:01 → D.M3 03:07
PROVIDERS: Emergency Medicine; Family Medicine; Orthopaedic Surgery; ADMIT Internal Medicine Nephrology; ATTEND Internal Medicine Nephrology
PROC: 0QS636Z Reposition Right Upper Femur with Intramedullary Internal Fixation Device, Percutaneous Approach (ICD-10-PCS; principal; 2019-09-13 14:00)
DX: S72.144A Nondisplaced intertrochanteric fracture of right femur, initial encounter for closed fracture (principal); E87.1 Hypo-osmolality and hyponatremia; F17.213 Nicotine dependence, cigarettes, with withdrawal; E11.65 Type 2 diabetes mellitus with hyperglycemia; E03.9 Hypothyroidism, unspecified; J44.9 Chronic obstructive pulmonary disease, unspecified; E11.40 Type 2 diabetes mellitus with diabetic neuropathy, unspecified; K21.9 Gastro-esophageal reflux disease without esophagitis; F41.8 Other specified anxiety disorders; W19.XXXA Unspecified fall, initial encounter; D64.9 Anemia, unspecified